=== PATIENT | female | born 1995 | race Caucasian/White ===

== ENCOUNTER 2019-04-08 01:00 | Emergency (ER) | payer OTHER, SELFPAY ==
[~2019-04-08] VITALS: Ht 154.9 cm; Wt 70.5 kg
[2019-04-08 01:01] VITALS: BP 141/86
[2019-04-08] MEDS ORDERED: IBUP-1094 PO (01:06)
== END 2019-04-08 02:20 | disposition left against medical advice (07) ==
LOC: M ED 01:00
DX: R10.9 Unspecified abdominal pain (principal); Z53.21 Procedure and treatment not carried out due to patient leaving prior to being seen by health care provider